=== PATIENT | male | born 1960 | race Hispanic/Latino ===

== ENCOUNTER → 2021-12-15 | Outpatient (CLI) | payer MEDICARE | LOC: RAD 11:39 | PROVIDERS: ATTEND Internal Medicine | DX: J01.00 Acute maxillary sinusitis, unspecified (principal) | CPT/HCPCS: 70220 ==

== ENCOUNTER → 2022-02-23 | Outpatient (CLI) | payer MEDICARE | LOC: CT 09:02 | PROVIDERS: ATTEND Internal Medicine | DX: H53.131 Sudden visual loss, right eye (principal); R51.9 Headache, unspecified | CPT/HCPCS: 70450 ==